=== PATIENT | female | born 1950 | race Caucasian/White ===

== ENCOUNTER 2016-09-20 05:14 | Observation (INO) | payer OTHER ==
[2016-09-20] MEDS ORDERED: CLINDAMYCIN 600 MG/DEXTROSE 50 ML IV ONE (06:00)
[2016-09-20] MEDS ORDERED: LIDOCAINE 1% 5 ML SDV ONE (06:01)
[2016-09-20] MEDS ORDERED: PROPOFOL 200 MG/20 ML VIAL ONE (07:08)
[2016-09-20] MEDS ORDERED: fentaNYL 250 MCG/5 ML INJ ONE (07:08)
[2016-09-20] MEDS ORDERED: LIDOCAINE 2% 5 ML SDV ONE (07:12)
[2016-09-20] MEDS ORDERED: ROCURONIUM 50 MG/5 ML VIAL ONE ×2 (07:12→08:12)
[2016-09-20] MEDS ORDERED: DEXAMETHASONE 4 MG/ML VIAL ONE (07:15)
[2016-09-20] MEDS ORDERED: ONDANSETRON 4 MG/2 ML VIAL ONE ×2 (07:16→10:06)
[2016-09-20] MEDS ORDERED: ONDANSETRON 4 MG/2 ML VIAL IVP PRN (07:23)
[2016-09-20] MEDS ORDERED: HYDROmorphONE/DILAUDID 1 MG/ML SYR IVP PRN (07:23)
[2016-09-20] MEDS ORDERED: ACETAMINOPHEN 325 MG TAB PO PRN (07:23)
[2016-09-20] MEDS ORDERED: HYDROCODONE/APAP 5/325 TAB PO PRN (07:23)
[2016-09-20] MEDS ORDERED: BUPIVACAINE 0.5% 30 ML SDV ONE (07:25)
[2016-09-20] MEDS ORDERED: DIAZEPAM 5 MG TAB PO PRN (07:26)
[2016-09-20] MEDS ORDERED: traMADol 50 MG TAB PO PRN (07:26)
[2016-09-20] MEDS ORDERED: NON-FORMULARY NEW DRUG (Esomeprazole Mag Trihydrate [Nexium] 40 MG) PO SCH (08:00)
[2016-09-20] MEDS ORDERED: ESCITALOPRAM OXALATE 40 MG PO SCH (09:00)
[2016-09-20] MEDS ORDERED: fentaNYL 100 MCG/2 ML INJ ONE ×2 (09:38→10:14)
--- NOTE | 2016-09-20 09:42 | POSTOPPROG ---
Post Op Note Date of Operation: 09/20/16 Surgeon: Seth Jacinto Pump Oiler: Adrianne Land Anesthesiologist: Bonilla Gerber Anesthesia: GET(General Endotracheal) Pre-op Diagnosis: GERD, hiatal hernia Post-op Diagnosis: same Procedure: lap hiatal hernia repair and elisa fundoplication Findings: medium hiatal hernia Inf/Abcess present in the surg proc area at time of surgery?: No EBL: Minimal Complications: none Specimen(s): none
[2016-09-20] MEDS: PANTOPRAZOLE SODIUM 40 MG TAB PO SCH (13:04)
[2016-09-20] MEDS: CYCLOBENZAPRINE 10 MG TAB PO SCH ×3 (13:04→22:19)
[2016-09-20] MEDS: ESCITALOPRAM OXALATE 10 MG TAB PO SCH (13:05)
--- NOTE | 2016-09-20 14:15 | SOAPPROG ---
SOAP Progress Note Assessment/Plan: Assessment/Plan: 66 Y F s/p lap hiatal hernia repair and elisa fundoplication , POD#0. Post op check. C/o R shoulder pain. Flexeril helping. Adding toradol. Incisional pain under control--incisions "itchy." AFVSS. Inc C/D/I. Continue routine post op care. 09/20/16 14:14 Objective: Vital Signs Temp Pulse Resp BP Pulse Ox 36.6 C 81 16 128/84 H 96 09/20/16 13:28 09/20/16 13:28 09/20/16 12:15 09/20/16 13:28 09/20/16 13:28 09/19/16 09/20/16 09/21/16 05:59 05:59 05:59 Intake Total 1100 Output Total 175 Balance 925 ICD10 Worksheet Patient Problems: Problems Problem Status Onset Primary localized osteoarthritis of right knee Acute
--- NOTE | 2016-09-20 14:20 | GOP ---
DATE OF OPERATION: SURGEON: Seth Jacinto MD [employer] MANAGER: ADELE Hughes ANESTHESIOLOGIST: Dr. Marroquin PREOPERATIVE DIAGNOSIS: Paraesophageal hernia and gastroesophageal reflux symptoms. POSTOPERATIVE DIAGNOSIS: Paraesophageal hernia and gastroesophageal reflux symptoms. PROCEDURE PERFORMED: Laparoscopic repair of a paraesophageal hernia with a Christos fundoplication. FINDINGS: Patient was found a large portion of the fundus of her stomach up in the chest. The hiat us was opened, although not horribly dilated. DESCRIPTION OF PROCEDURE: Patient taken to the operating room, where she received satisfactory gene ral endotracheal anesthesia by Dr. Marroquin. She was in the supine position with her legs stretched out in leg holders. A short incision was made in the epigastrium and a Veress needle was introduced. Pneumoperitoneum w as established. Trocar was introduced. Good visualization was obtained. Four other trocars were p laced in the upper abdomen under direct vision. The left lateral segment of the liver was retracted upward and away. The hiatus was exposed. Both r ight and left sherita were freed up and completely exposed. Some fatty tissue and other adhesions to t he esophagus were dissected free and reduced. The esophagus was freed up for at least 6 cm up into the chest, and did release it at the hiatus. The gastroesophageal junction sat easily at the hiatus . The hiatus was first closed with interrupted 0 Ethibond sutures creating a snug hiatus. A 52-Georgian bougie dilator was passed. The fundus of the stomach was then passed in a retroesophageal tunnel t o create a Christos fundoplication. This was done with interrupted 0 Ethibond sutures securing the an terior wall of the stomach to the anterior wall of the esophagus and then to the fundoplication wrap . Three interrupted sutures were placed tear creating a loose, floppy wrap. Hemostasis was assured . After completion of the surgery, the trocars were removed under direct vision and trocar sites were closed with 4-0 Monocryl subcuticular stitches. All wounds were infiltrated with 0.5% Marcaine. She tolerated the procedure quite well, was taken to the recovery room in good condition. There wer e no complications. /[id number]/MODL
[2016-09-20] MEDS: D5W 1/2 NS W/ 20 KCl/L 1,000 ML IV SCH (15:05)
[2016-09-20] MEDS: ACET/CAFFEINE/BUTA FIORICET 1 EACH TAB PO PRN ×2 (16:09→22:19)
[2016-09-20] MEDS: CLINDAMYCIN 600 MG/DEXTROSE 50 ML IV SCH ×2 (16:10→23:37)
[2016-09-20] MEDS: RAMIPRIL 5 MG CAP PO SCH (16:12)
[2016-09-20] MEDS: KETOROLAC 15 MG/1 ML SDV IVP SCH ×2 (17:50→23:37)
[2016-09-20] MEDS ORDERED: CLINDAMYCIN 600 MG/DEXTROSE 50 ML IV SCH (22:00)
[2016-09-21] MEDS: D5W 1/2 NS W/ 20 KCl/L 1,000 ML IV SCH (02:24)
[2016-09-21 05:37] LABS: HEMATOCRIT 25.6 % (38.0-47.0); HEMOGLOBIN 7.7 g/dL (12.6-16.3)
[2016-09-21] MEDS ORDERED: CLINDAMYCIN 600 MG/DEXTROSE 50 ML IV SCH (06:00)
[2016-09-21 06:06] LABS: ANION GAP 6 mEq/L (8-16); CALCIUM 8.7 mg/dL (8.5-10.4); CARBON DIOXIDE 23 mEq/l (22-31); CHLORIDE 105 mEq/L (97-110); CREATININE 0.8 mg/dL (0.6-1.0); GLOMERULAR FILTRATION RATE > 60; GLUCOSE 101 mg/dL (70-100); POTASSIUM 4.8 mEq/L (3.5-5.2); SODIUM 134 mEq/L (134-144)
[2016-09-21] MEDS: LEVOTHYROXINE 125 MCG TAB PO SCH (06:13)
[2016-09-21] MEDS: KETOROLAC 15 MG/1 ML SDV IVP SCH ×3 (06:14→18:20)
[2016-09-21] MEDS: CYCLOBENZAPRINE 10 MG TAB PO SCH ×3 (08:47→20:38)
[2016-09-21] MEDS: RAMIPRIL 5 MG CAP PO SCH (08:47)
[2016-09-21] MEDS: ESCITALOPRAM OXALATE 10 MG TAB PO SCH (08:48)
[2016-09-21] MEDS: PANTOPRAZOLE SODIUM 40 MG TAB PO SCH (08:50)
[2016-09-21] MEDS: CLINDAMYCIN 600 MG/DEXTROSE 50 ML IV SCH (08:51)
[2016-09-21] MEDS: ACET/CAFFEINE/BUTA FIORICET 1 EACH TAB PO PRN ×3 (08:55→23:03)
--- NOTE | 2016-09-21 10:01 | SOAPPROG ---
SOAP Progress Note Assessment/Plan: Assessment/Plan: 66 Y F s/p lap hiatal hernia repair and elisa fundoplication , POD#1. Post op anemia. Prior Hct 31 in 06/09, now 25.6. Probable normal for EBL and dilution. Doubt active bleeding. Repeat H&H at noon. Buff cap IV. Clear liquid diet. PT consult. OOB. Dispo: pending. Likely to home when ready. 09/21/16 09:58 Subjective: c/o right shoulder pain. did some walking to bathroom. passing gas. no n/v. Objective: Vital Signs Temp Pulse Resp BP Pulse Ox 36.5 C 77 20 119/74 99 09/21/16 08:00 09/21/16 08:00 09/21/16 08:00 09/21/16 08:00 09/21/16 08:00 Laboratory Results 09/21/16 05:18 09/21/16 05:18 09/20/16 09/21/16 09/22/16 05:59 05:59 05:59 Intake Total 2954 Output Total 400 900 Balance 2554 -900 gen: somnolent but arousable and appropriate heent: mmm chest: no wob cor: rrr abd: soft, inc cdi, +BS ICD10 Worksheet Patient Problems: Problems Problem Status Onset Primary localized osteoarthritis of right knee Acute
[2016-09-21 12:25] LABS: HEMATOCRIT 28.6 % (38.0-47.0); HEMOGLOBIN 8.7 g/dL (12.6-16.3)
[2016-09-22] MEDS: KETOROLAC 15 MG/1 ML SDV IVP SCH ×3 (00:07→11:52)
[2016-09-22 00:16] VITALS: TEMP 97.8
[2016-09-22] MEDS: LEVOTHYROXINE 125 MCG TAB PO SCH (05:43)
[2016-09-22 08:59] VITALS: BP 130/96; PULSE 84; RESP 14; O2SAT 90
[2016-09-22] MEDS: ACET/CAFFEINE/BUTA FIORICET 1 EACH TAB PO PRN (09:12)
[2016-09-22] MEDS: PANTOPRAZOLE SODIUM 40 MG TAB PO SCH (09:13)
[2016-09-22] MEDS: RAMIPRIL 5 MG CAP PO SCH (09:14)
[2016-09-22] MEDS: ESCITALOPRAM OXALATE 10 MG TAB PO SCH (09:14)
[2016-09-22] MEDS: CYCLOBENZAPRINE 10 MG TAB PO SCH (09:15)
--- NOTE | 2016-09-22 14:22 | GDS ---
REASON FOR ADMISSION: Surgery for severe reflux. HOSPITAL COURSE: The patient came in for elective laparoscopic Christos fundoplication for a large pa raesophageal hernia, which she underwent on 09/20/[address] Jacinto. The patient's hospital course was remarkable for some postoperative pain, thus she ended up staying 2 nights. She is tolerating a soft diet. Her pain is well controlled on oral pain medicine. She i s ambulating. She had a normal bowel movement. She is going to be discharged today with peter aguilera to follow up in our office in approximately 10 days. Okay to shower with Steri-Strips. Continue soft diet for now. The patient was discharged Toradol oral tablets #6 no refills, Fioricet #35. /[id number]/MODL
== END 2016-09-22 14:36 | disposition home or self-care (01) ==
LOC: F3E 05:14
PROVIDERS: ADMIT Surgery; ATTEND Surgery
PROC: 0DV44ZZ Restriction of Esophagogastric Junction, Percutaneous Endoscopic Approach (ICD-10-PCS; principal; 2016-09-20 07:19)
DX: K44.9 Diaphragmatic hernia without obstruction or gangrene (principal); K21.0 Gastro-esophageal reflux disease with esophagitis; Z96.659 Presence of unspecified artificial knee joint
CPT/HCPCS: 43280; 97161; G0378; G8978; G8979; J1100; J1170; J1885; J2405; J2704; J3010

== ENCOUNTER 2017-01-31 10:09 | Day surgery (SDC) | payer OTHER, MEDICAID ==
--- NOTE | 2017-01-30 21:22 | GHP ---
[f rep st] PREOP HISTORY AND PHYSICAL DATE OF ADMISSION: 01/31/2017 HISTORY OF PRESENT ILLNESS: The patient is a 66-year-old female with a history of severe gastroesop hageal reflux symptoms, who is status post laparoscopic repair of a paraesophageal hernia with a Nis sen fundoplication in August of 2016. Postoperative course was relatively uneventful aside from s ome shoulder and neck pain. She was found to have a large portion of the fundus of her stomach up i n the chest. The hiatus was opened, although not terribly dilated. Postoperative visits were relat ively unremarkable; however, recently she reports some regurgitation of food. She says she has lost weight as she cannot swallow and eat. A recent upper GI series showed no major stenosis or reflux despite her reported symptoms. She now presents for followup. PAST MEDICAL HISTORY: GERD as described above with paraesophageal hernia. Also, history of hypothy roidism, knee replacement, and hysterectomy. MEDICATIONS: Levothyroxine, Celebrex, Nexium, Lexapro, ramipril, hydrocodone, Valium, Soma. ALLERGIES: Penicillin. SOCIAL HISTORY: Patient is a never smoker. She is a former nurse. She has no alcohol intake. REVIEW OF SYSTEMS: Negative 10-point review of systems aside from that mentioned in the HPI. PHYSICAL EXAMINATION: GENERAL: Reveals a well-developed, well-nourished, pleasant, 66-year-old fem norah, alert and oriented x3, and in no acute distress. HEENT: Normocephalic, atraumatic. CHEST: Clear to auscultation bilaterally. CARDIAC: Regular rate and rhythm. ABDOMEN: Soft. Nontender. Well-healed scars. EXTREMITIES: Warm and dry. GENITAL: Deferred. PSYCH: Normal mood and affect. IMPRESSION: This is a 66-year-old female, status post paraesophageal hernia repair with Christos fund oplication for gastroesophageal reflux disease recalcitrant to medical therapies, now with possible esophageal dysmotility versus esophageal stenosis. PLAN: Plan is to proceed with an endoscopic evaluation, possible dilatation. Risks and options hav e been fully discussed, and she requests to proceed. /[id number]/MODL
--- NOTE | 2017-01-31 07:21 | PDHPUP ---
History & Physical Update H&P update statement: This history and physical update is based on an assessment of the patient which was completed after admission or registration (within 24 hours), but prior to the surgery/procedure. H&P update: H&P reviewed & patient examined, no change in patient's condition since H&P completed
[2017-01-31] MEDS ORDERED: LIDOCAINE 1% 2 ML INJ ONE (10:54)
[2017-01-31] MEDS ORDERED: LIDOCAINE 1% 2 ML INJ ID PRN (11:07)
[2017-01-31] MEDS ORDERED: NS 500 ML IV SCH (11:30)
[2017-01-31] MEDS ORDERED: fentaNYL 100 MCG/2 ML INJ ONE (12:23)
[2017-01-31] MEDS ORDERED: DIAZEPAM 10 MG/2 ML SYR ONE (12:44)
[2017-01-31 13:25] VITALS: BP 123/81; PULSE 85; RESP 14; TEMP 98.1; O2SAT 96
--- NOTE | 2017-02-02 06:18 | GOP ---
[f rep st] OPERATIVE REPORT DATE OF OPERATION: 01/31/2017 SURGEON: Seth Jacinto MD PREOPERATIVE DIAGNOSIS: History of gastroesophageal reflux disease. POSTOPERATIVE DIAGNOSIS: Possible slipped Kendra. PROCEDURE PERFORMED: EGD. FINDINGS: CONSISTENT WITH SLIPPED KENDRA INDICATIONS: The patient has been having recurrent symptoms after repair of a hiatal hernia including swallowing difficulties and regurgitation of food. DESCRIPTION OF PROCEDURE: The patient was taken to the special procedure room where she received IV sedation with Valium and fentanyl. She had refused Versed and requested Valium. Throat was anesthetized with some Hurricaine spray and using about with a mouth block in place the endoscope was passed without difficulty down the esophagus. There appeared to be some minimal esophagitis at the distal esophagus. There did appear to be some gastric mucosa which was dilated right at the gastroesophageal junction. And then there was a Kendra wrap intact and the remainder of the stomach to the duodenum appeared to be normal. There was no evidence of disruption of the wrap, but appeared possibly to have slipped. The scope was withdrawn. The stomach was emptied of gas and fluid. There was quite a bit of fluid seen in the stomach. The scope was withdrawn. She tolerated the procedure well. Taken to recovery room in good condition. There were no complications. /[id number]/MODL MTDD
== END 2017-01-31 14:39 | disposition home or self-care (01) ==
LOC: FSGY 10:09
PROVIDERS: ATTEND Surgery
PROC: 0DB38ZX Excision of Lower Esophagus, Via Natural or Artificial Opening Endoscopic, Diagnostic (ICD-10-PCS; principal; 2017-01-31 11:45)
DX: T85.521A Displacement of esophageal anti-reflux device, initial encounter (principal); K21.9 Gastro-esophageal reflux disease without esophagitis; E03.9 Hypothyroidism, unspecified; Z96.659 Presence of unspecified artificial knee joint
CPT/HCPCS: J3010